=== PATIENT | female | born 1990 | race American Indian/Alaskan Native ===

== ENCOUNTER 2018-07-20 12:05 | Emergency (ER) | payer OTHER ==
[2018-07-20 12:38] VITALS: BP 107/73; PULSE 93; RESP 16; TEMP 98.9; O2SAT 99
--- NOTE | 2018-07-20 13:35 | ED PDOC ---
HPI: Back Time Seen by Provider: 07/20/18 12:29 Chief Complaint (Nursing): Back Pain Chief Complaint (Provider): Back Pain History Per: Patient History/Exam Limitations: no limitations Current Symptoms Are (Timing): Still Present Additional Complaint(s): 27 year old female presents to the ED complaining of bilateral lower back pain over the SI joints which has been worse for the last day. Patient states pain is worse on the left and has not taken any medications for pain because she does not like taking medications. She also states she has not seen a PMD for this. Denies radiation of pain or systemic symptoms. She indicates having similar pain in the past but today pain was worse. PMd: none Past Medical History Reviewed: Historical Data, Nursing Documentation, Vital Signs Vital Signs: Last Vital Signs Temp 98.9 F 07/20/18 12:36 Pulse 93 H 07/20/18 12:36 Resp 16 07/20/18 12:36 BP 107/73 07/20/18 12:36 Pulse Ox 99 07/20/18 12:36 - Medical History PMH: No Chronic Diseases - Surgical History Surgical History: No Surg Hx - Family History Family History: States: Unknown Family Hx - Home Medications Home Medications: Ambulatory Orders Medication Instructions Recorded Cyclobenzaprine [Cyclobenzaprine 10 mg PO Q8H #20 tab 07/20/18 HCl] Ibuprofen [Motrin Tab] 800 mg PO Q6H PRN #20 tab 07/20/18 - Allergies Allergies/Adverse Reactions: Allergies Allergy/AdvReac Type Severity Reaction Status Date / Time No Known Allergies Allergy Verified 07/20/18 12:39 Review of Systems ROS Statement: Except As Marked, All Systems Reviewed And Found Negative Musculoskeletal: Positive for: Back Pain (lower back pain) Physical Exam - Reviewed Nursing Documentation Reviewed: Yes Vital Signs Reviewed: Yes - Physical Exam Appears: Positive for: Non-toxic, No Acute Distress Head Exam: Positive for: ATRAUMATIC, NORMOCEPHALIC Skin: Positive for: Normal Color, Warm, Dry Eye Exam: Positive for: Normal appearance Neck: Positive for: Normal, Painless ROM Cardiovascular/Chest: Positive for: Regular Rate, Rhythm. Negative for: Murmur, Tachycardia Respiratory: Positive for: Normal Breath Sounds. Negative for: Wheezing, Respiratory Distress Back: Positive for: Normal Inspection. Negative for: L CVA Tenderness, R CVA Tenderness, Vertebral Tenderness, Other (lower back tenderness on palpation) Extremity: Positive for: Normal ROM Neurologic/Psych: Positive for: Alert, Oriented. Negative for: Motor/Sensory Deficits - ECG O2 Sat by Pulse Oximetry: 99 (RA) Pulse Ox Interpretation: Normal Medical Decision Making Medical Decision Making: Initial Impression: Back pain Initial Plan: --Motrin 600mg PO Discussed stretched with patient. Scribe Attestation: Documented by Deandre Younger acting as a scribe for Ann BLAND. Provider Scribe Attestation: All medical record entries made by the Scribe were at my direction and personally dictated by me. I have reviewed the chart and agree that the record accurately reflects my personal performance of the history, physical exam, medical decision making, and the department course for this patient. I have also personally directed, reviewed, and agree with the discharge instructions and disposition. Disposition - Clinical Impression Clinical Impression: Low back pain - Patient ED Disposition Is Patient to be Admitted: No - Disposition Disposition: Routine/Home Disposition Time: 13:35 Condition: GOOD Prescriptions: Cyclobenzaprine [Cyclobenzaprine HCl] 10 mg PO Q8H #20 tab Ibuprofen [Motrin Tab] 800 mg PO Q6H PRN #20 tab PRN Reason: Pain Instructions: Sciatica Exercises Forms: [employer] (N[place]ali)
== END 2018-07-20 13:57 | disposition home or self-care (01) ==
LOC: H.ER 12:05
DX: M54.32 Sciatica, left side (principal)